=== PATIENT | female | born 1950 | race Caucasian/White ===

== ENCOUNTER 2019-08-03 08:39 | Outpatient (CLI) | payer BC, SELFPAY ==
[2019-08-03 09:10] LABS: Basophils Absolute Auto 0.1 K/mm3 (0.0-0.1); Basophils Percent Auto 1.3 % (0.2-1.2); Eosinophils Absolute Auto 0.2 K/mm3 (0-0.3); Eosinophils Percent Auto 2.8 % (0-4.4); Hemoglobin 14.3 g/dL (12.0-15.0); Immature Granulocyte Absolute 0.05 K/mm3 (0.00-0.031); Immature Granulocyte Percent A 0.8 % (0-0.5); Lymphocytes Absolute Auto 1.98 K/mm3 (0.9-3.2); Lymphocytes Percent Auto 31.2 % (18.3-44.2); Mean Corpuscular HGB Conc 32.5 g/dl (32-36); Mean Corpuscular Hemoglobin 31.8 pg (26-34); Mean Corpuscular Volume 97.8 fl (80-100); Mean Platelet Volume 9.8 fl (7.4-10.4); Monocytes Absolute Auto 0.7 K/mm3 (0.1-0.6); Monocytes Percent Auto 11.7 % (2.6-8.5); Neutrophils Absolute Auto 3.3 K/mm3 (1.3-6.7); Neutrophils Percent Auto 52.2 % (45.5-73.1); Platelet Count Result 258 k/mm3 (150-375); Red Cell Distribution Width 12.4 % (11.5-14.5); White Blood Count 6.3 K/mm3 (4.5-10.0)
[2019-08-03 09:31] LABS: Immunoglobulin A 307 mg/dL (70-400); Immunoglobulin G 902 mg/dL (700-1600); Immunoglobulin M 71 mg/dL (40-230)
[2019-08-03 09:39] LABS: Blood Urea Nitrogen 21 mg/dL (7-17); CRP 0.5 mg/dL (<1.0); Carbon Dioxide 28 mmol/L (22-30); Chloride 103 mmol/L (98-107); Estimated Glomerular Filt Rate > 60; Glucose 78 mg/dL (65-105); Sodium 137 mmol/L (137-145)
[2019-08-03 09:57] LABS: Erythrocyte Sedimentation Rate 12 mm/hr (0-20)
[2019-08-06 02:03] LABS: Immunoglobulin E 78 kU/L (<=114)
== END 2019-08-03 08:40 | disposition home or self-care (01) ==
PROVIDERS: PCP Internal Medicine; Visit Provider Internal Medicine
DX: R21 Rash and other nonspecific skin eruption (principal)
CPT/HCPCS: 36415; 80048; 82784; 82785; 85025; 85652; 86140; 87081

== ENCOUNTER 2020-12-18 11:54 | Outpatient (CLI) | payer BC, SELFPAY ==
--- NOTE | ~2020-12-18 | XR_ITS ---
XR ankle RT min 3V DATE: 12/18/2020 12:30 INDICATION: Chronic right ankle instability. No injury. TECHNIQUE: 3 weightbearing views of the right ankle COMPARISON: None FINDINGS: No fracture or dislocation of the ankle or disruption of the ankle mortise. IMPRESSION: Negative Reviewed, dictated and finalized at location B. IMPRESSION: Negative
== END 2020-12-18 11:55 | disposition home or self-care (01) ==
LOC: ANHIMG 11:59
PROVIDERS: PCP Internal Medicine; Visit Provider Podiatrist Foot & Ankle Surgery
DX: M25.371 Other instability, right ankle (principal)
CPT/HCPCS: 73610

== ENCOUNTER 2020-12-23 15:53 | Outpatient (NON) | payer BC, SELFPAY | END 2020-12-23 15:54 | disposition home or self-care (01) | PROVIDERS: PCP Internal Medicine; Visit Provider Surgery Plastic and Reconstructive Surgery | DX: S61.459A Open bite of unspecified hand, initial encounter (principal); X58.XXXA Exposure to other specified factors, initial encounter | CPT/HCPCS: 87070; 87075; 87076; 87077; 87185; 87205 ==

== ENCOUNTER → 2021-01-05 09:53 | Outpatient (CLI) | payer BC, SELFPAY ==
--- NOTE | ~2021-01-05 | XR_ITS ---
EXAMINATION: XR hand LT min 3V EXAM DATE: 01/05/2021 10:11 INDICATION: M79.642 - Pain in left hand . Pain x 2 wks; cat bite with infection; swelling near 4th me tacarpal area; no surgeries; possible fx 1st digit yrs ago? TECHNIQUE: Left hand frontal, lateral and oblique projections obtained and reviewed. There is no so or study for comparison. FINDINGS: Left metacarpal bones are unremarkable. 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 There is mild triscaphe and 1st carpometacarpal joint primary osteoarthritis. There are no bony eros ions identified. There are no acute fractures identified. No radiopaque foreign bodies identified. IMPRESSION: 1. No acute findings. 2. Left wrist arthritis as above. Reviewed, dictated and finalized at location A.
== END ==
PROVIDERS: PCP Internal Medicine; Visit Provider Surgery Plastic and Reconstructive Surgery
DX: M19.032 Primary osteoarthritis, left wrist (principal)
CPT/HCPCS: 73130

== ENCOUNTER → 2021-05-13 10:26 | Outpatient (CLI) | payer BC, SELFPAY ==
[2021-05-13 21:05] LABS: SARS-CoV-2 RNA PCR Negative
== END ==
PROVIDERS: PCP Internal Medicine; Visit Provider Internal Medicine
DX: R05.9 Cough, unspecified (principal); Z20.822 Contact with and (suspected) exposure to COVID-19
CPT/HCPCS: C9803; U0003; U0005

== ENCOUNTER 2022-07-30 06:43 | Outpatient (CLI) | payer BC, SELFPAY ==
--- NOTE | ~2022-07-30 | MR_ITS ---
EXAMINATION: MR brain/brain stem wo/w con DATE: 07/30/2022 07:54 INDICATION: Left face paresthesias. TECHNIQUE: Magnetic resonance imaging (MRI) of the brain and brainstem was performed without and with 19 mL MultiHance intravenous contrast. COMPARISON: None. FINDINGS: There are scattered areas of nonspecific increased T2-weighted signal intensity in the cere bral white matter. There is no intracranial hemorrhage, acute infarction, or abnormal intracranial ma ss lesion. The ventricles are normal in size. The trigeminal nerves are normal. There is mild mucosal thickening in left maxillary sinus. The orbits are normal. The mastoid air cells are normal. IMPRESSION: 1. Mild nonspecific cerebral white matter disease, which likely represents chronic small vessel ische zak disease. Reviewed, dictated and finalized at location A. IMPRESSION: 1. Mild nonspecific cerebral white matter disease, which likely represents hitcher monie small vessel ischemic disease.
--- NOTE | 2022-07-30 12:43 | ECHO_ITS ---
Patient Info Name: Ayanna Murillo Age: 72 years : 1950 Gender: Female Ht: 66 in Wt: 190 lbs BSA: 2.03 m2 HR: 90 bpm BP: 122 / 69 mmHg Technical Quality: Fair Exam Date: 07/30/2022 12:51 PM Exam Location: [facility] Patient Status: Preadmit Admit Date: 07/30/2022 Staff Ordering Physician: Cesar Chapman MD Hematologist: Neha Neville RDCS Attending Provider: Cesar Chapman MD Referring Physician: Adela MEDINA; Exam Type: CA echo doppler color flow Study Info Indications I44.7 - Left bundle-branch block, unspecified Complete two-dimensional, color flow and Doppler transthoracic echocardiogram is performed. Summary 1. Complete two-dimensional, color flow and Doppler transthoracic echocardiogram is performed. 2. Left ventricular chamber dimension is normal. 3. Left ventricular systolic function is normal, estimated at 60-65%. 4. Left ventricular septal wall motion is abnormal with septal motion related to bundle branch block. 5. The left ventricular diastolic function is grade I diastolic dysfunction. 6. E/e' 8 is minimally elevated. 7. Mild pulmonary hypertension, estimated pulmonary arterial systolic pressure is 45 mmHg. Left Ventricle E/e' 8 is minimally elevated. Left ventricular chamber dimension is normal. Left ventricular systolic function is normal, estimated at 60-65%. Left ventricular septal wall motion is abnormal with septal motion related to bundle branch block. The left ventricular diastolic function is grade I diastolic dysfunction. Right Ventricle Right ventricular chamber dimension is normal. Right ventricular systolic function is normal. Left Atria Left atrial chamber dimension is normal. Right Atria Right atrial chamber dimension is normal. Aortic Valve The aortic valve is trileaflet. There is no aortic valve stenosis. There is no aortic valve regurgitation. Pulmonic Valve There is no pulmonic regurgitation. Mitral Valve There is no mitral valve stenosis. There is no mitral valve regurgitation. Tricuspid Valve There is no tricuspid valve regurgitation. Mild pulmonary hypertension, estimated pulmonary arterial systolic pressure is 45 mmHg. Pericardium/Pleural There is no pericardial effusion. Inferior Vena Cava Normal inferior vena cava with >50% collapse upon inspiration consistent with normal right atrial pressure, 5 mmHg. Aorta The aortic root size at the sinus of Valsalva is normal. Left Ventricular Outflow Tract Name Value Normal LVOT 2D LVOT Diameter 2.0 cm LVOT Doppler LVOT Peak Gradient 5 mmHg LVOT Mean Gradient 3 mmHg LVOT VTI 19 cm LVOT VTI/AV VTI Ratio 0.8 LVOT Stroke Volume 59 ml LVOT CO 15.0 l/min LVOT CI 7.4 l/min/m2 Pulmonic Valve Name Value Normal
== END 2022-07-30 06:44 | disposition home or self-care (01) ==
PROVIDERS: PCP Internal Medicine; Visit Provider Internal Medicine
DX: I44.7 Left bundle-branch block, unspecified (principal); G50.0 Trigeminal neuralgia; R20.2 Paresthesia of skin; I37.1 Nonrheumatic pulmonary valve insufficiency; R93.0 Abnormal findings on diagnostic imaging of skull and head, not elsewhere classified
CPT/HCPCS: 70553; 93306; A9577

== ENCOUNTER 2023-06-21 15:24 | Outpatient (CLI) | payer BC, SELFPAY ==
--- NOTE | ~2023-06-21 | XR_ITS ---
EXAM: XR knee RT 3V DATE: 06/21/2023 16:11 HISTORY: M25.561 - Pain in right knee . COMPARISON: None available. FINDINGS: Decreased mineralization. No fracture or dislocation. No lytic or blastic lesion. Mild med ial and moderate lateral joint space narrowing. Tricompartmental osteophytosis. Quadriceps enthesopat hy. No erosion or periosteal change. Small-volume joint effusion. Soft tissues within normal limits. IMPRESSION: Tricompartmental right knee osteoarthritis, moderate in the lateral compartment. Reviewed, dictated and finalized at location K. DRESSER
== END 2023-06-21 15:25 | disposition home or self-care (01) ==
LOC: ANHIMG 15:27
PROVIDERS: PCP Internal Medicine; Visit Provider Internal Medicine
DX: M17.11 Unilateral primary osteoarthritis, right knee (principal)
CPT/HCPCS: 73562

== ENCOUNTER 2023-07-14 00:33 | Day surgery (SDC) | payer BC, SELFPAY ==
[2023-06-21 13:47] VITALS: BMI 32.3
--- NOTE | 2023-07-12 08:25 | SUR.PREOP ---
Patient called regarding upcoming procedure. Reviewed preop instructions, appointment times, and procedure prep.
--- NOTE | 2023-07-13 14:33 | PM.HPGS ---
History of Present Illness History of Present Illness Consent: Risks, benefits, and alternatives have been discussed and questions answered. Patient agrees to proceed with procedure. Chief complaint: Hemorrhage of anus and rectum Narrative: Ayanna Murillo is a 73 year old female Referred for colonoscopy due to rectal bleeding. She has seen blood in her stools on a couple occasions. Her last colonoscopy was 8 years ago and was negative except for diverticulosis. Review of Systems Review of Systems: All systems reviewed & are unremarkable except as noted in HPI and below PMFSH Past Medical History Medical History Abnormal finding of blood chemistry Abnormal finding of blood chemistry, unspecified Ankle weakness Anxiety BMI 28.0-28.9,adult BMI 29.0-29.9,adult BMI 30.0-30.9,adult BMI 31.0-31.9,adult BMI 33.0-33.9,adult BMI 34.0-34.9,adult Breast cancer screening Cellulitis Cough Dyshidrotic eczema Dysphagia Elevated LFTs Encounter for preventive health examination Encounter for routine adult health examination with abnormal findings Encounter for routine adult health examination without abnormal findings Facial paresthesia FHx: type 2 diabetes mellitus Follow up Hyperlipidemia Insomnia LBBB (left bundle branch block) Migraines Nocturia Numbness in feet On manager terminal drug therapy Vision changes Vitamin D deficiency Surgical History Surgical History History of knee replacement History of shoulder replacement History of total replacement of both hip joints Family History Family History Mother Family history of type 2 diabetes mellitus Diabetes mellitus Family history of diabetes mellitus in first degree relative Social History Social History Smoking packs per day: 0.5 Smoking cigarettes per day: 10.0 Years smoked: 30 Smoking pack-years: 15.00 Smoking status: Former smoker Tobacco type: cigarettes Second hand tobacco smoke exposure: No Alcohol intake: current Drinks per week: 5 Alcohol use details: DRINKS Substance use: never Substance use type: does not use Lack of Transportation: No Lack of Food: Never True Concerned About Future Housing: No Difficulty Paying Gas/Electric Bills: No Difficulty Paying for Meds: No Currently Unemployed: No Education: Master's Degree or Higher Difficulty w/ Childcare or Family Care: No Living arrangements: with family Occupation/Education: occupation Gender identity (if verbalized by the patient): Female Spiritual care concerns: No Meds Home Medications and Allergies Home Medications Medication Instructions Recorded Confirmed Type calcium carbonate 600 mg-vitamin 1 tablet PO DAILY 05/02/19 06/21/23 History D3 20 mcg (800 unit) chewable tablet (Caltrate 600 plus D) multivitamin 1 tablet PO DAILY 05/02/19 06/21/23 History cholecalciferol (vitamin D3) 50 50 mcg PO DAILY 07/22/22 06/21/23 History mcg (2,000 unit) capsule mupirocin calcium 2 % topical cream 1 applic topical BID PRN infection 07/22/22 06/21/23 Rx #15 grams triamcinolone acetonide 0.5 % See Rx Instructions .Route 07/22/22 06/21/23 Rx topical cream .COMPLEX PRN itching #450 grams rosuvastatin 10 mg tablet (Crestor) 10 mg PO DAILY #90 tabs 02/09/23 06/21/23 Rx rizatriptan 10 mg disintegrating See Rx Instructions PO .COMPLEX 03/30/23 06/21/23 Rx tablet #12 tabs tqiizihkuxmp-jfyjovyr-typrjej-folic 1 tablet PO DAILY 06/21/23 06/21/23 History acid 400 mcg-vit K1 20 mcg tablet (One-A-Day Women's 50 Plus) alprazolam 0.25 mg tablet 0.25 mg PO TID PRN anxiety #90 tabs 06/29/23 07/14/23 Rx Allergies Allergy/AdvReac Type Severity Reaction Status Date / Time clavulanic acid Allergy Intermediate Rash Verified 07/14/23 10:32 [
[2023-07-14 10:33] VITALS: BP 143/70; PULSE 95; RESP 18; TEMP 36.2; O2SAT 98
[2023-07-14] MEDS: LACTATED RINGERS 1,000 ML 150 ML IV CONT (10:43)
--- NOTE | 2023-07-14 11:16 | WPDANESEPPF ---
Anes - Initial Pre Proc Eval Procedure: Operation Date: 07/14/23 11:30 Proposed Procedures p Colonoscopy - Santo Cabello MD Date/Time: 07/14/23 11:16 Surgeon: Santo Cabello MD Pre Op Diagnosis: Hemorrhage of anus and rectum Patient Data Age: 73 Gender: F Height: 1.68 m Weight: 90.5 kg Last Vital Signs Temp 36.2 C L 07/14/23 10:33 Pulse 95 07/14/23 10:33 Resp 18 07/14/23 10:33 BP 143/70 H 07/14/23 10:33 Pulse Ox 98 07/14/23 10:33 O2 Del Method Room Air 07/14/23 10:33 Allergies Allergy/AdvReac Type Severity Reaction Status Date / Time clavulanic acid Allergy Intermediate Rash Verified 07/14/23 10:32 [From Augmentin] hydrocodone Allergy Intermediate HEADACHES Verified 07/14/23 10:32 clindamycin Allergy Mild Rash Verified 07/14/23 10:32 amoxicillin AdvReac Mild Rash Verified 07/14/23 10:32 Home Medications Medication Instructions Recorded Confirmed Type calcium carbonate 600 mg-vitamin 1 tablet PO DAILY 05/02/19 06/21/23 History D3 20 mcg (800 unit) chewable tablet (Caltrate 600 plus D) multivitamin 1 tablet PO DAILY 05/02/19 06/21/23 History cholecalciferol (vitamin D3) 50 50 mcg PO DAILY 07/22/22 06/21/23 History mcg (2,000 unit) capsule mupirocin calcium 2 % topical cream 1 applic topical BID PRN infection 07/22/22 06/21/23 Rx #15 grams triamcinolone acetonide 0.5 % See Rx Instructions .Route 07/22/22 06/21/23 Rx topical cream .COMPLEX PRN itching #450 grams rosuvastatin 10 mg tablet (Crestor) 10 mg PO DAILY #90 tabs 02/09/23 06/21/23 Rx rizatriptan 10 mg disintegrating See Rx Instructions PO .COMPLEX 03/30/23 06/21/23 Rx tablet #12 tabs iqrbfdlpfygb-ftagjuwa-kwvevkl-folic 1 tablet PO DAILY 06/21/23 06/21/23 History acid 400 mcg-vit K1 20 mcg tablet (One-A-Day Women's 50 Plus) alprazolam 0.25 mg tablet 0.25 mg PO TID PRN anxiety #90 tabs 06/29/23 07/14/23 Rx Patient hx anesthesia problems: none Family hx anesthesia problems: none Results Review: All pre-operative results and documents have been reviewed as part of the pre-operative evaluation. [facility] Past Medical History Medical History Abnormal finding of blood chemistry Abnormal finding of blood chemistry, unspecified Ankle weakness Anxiety BMI 28.0-28.9,adult BMI 29.0-29.9,adult BMI 30.0-30.9,adult BMI 31.0-31.9,adult BMI 33.0-33.9,adult BMI 34.0-34.9,adult Breast cancer screening Cellulitis Cough Dyshidrotic eczema Dysphagia Elevated LFTs Encounter for preventive health examination Encounter for routine adult health examination with abnormal findings Encounter for routine adult health examination without abnormal findings Facial paresthesia FHx: type 2 diabetes mellitus Follow up Hyperlipidemia Insomnia LBBB (left bundle branch block) Migraines Nocturia Numbness in feet On mcc drug therapy Vision changes Vitamin D deficiency Surgical History Surgical History History of knee replacement History of shoulder replacement History of total replacement of both hip joints Family History Family History Mother Family history of type 2 diabetes mellitus Diabetes mellitus Family history of diabetes mellitus in first degree relative Social History Social History Smoking packs per day: 0.5 Smoking cigarettes per day: 10.0 Years smoked: 30 Smoking pack-years: 15.00 Smoking status: Former smoker Tobacco type: cigarettes Second hand tobacco smoke exposure: No Alcohol intake: current Drinks per week: 5 Alcohol use details: DRINKS Substance use: never Substance use type: does not use Lack of Transportation: No Lack of Food: Never True Concerned About Future Housing: No Difficulty Paying Gas/Electric Bills: No Difficulty Pa
[2023-07-14 12:19] VITALS: BP 111/89; PULSE 89; RESP 21; O2SAT 97
[2023-07-14 12:29] VITALS: BP 121/80; PULSE 89; RESP 21; O2SAT 98
[2023-07-14 12:39] VITALS: BP 134/102; PULSE 85; RESP 22; O2SAT 100
== END 2023-07-14 12:45 | disposition home or self-care (01) ==
PROVIDERS: PCP Internal Medicine; Visit Provider Internal Medicine Gastroenterology
PROC: 0DJD8ZZ Inspection of Lower Intestinal Tract, Via Natural or Artificial Opening Endoscopic (ICD-10-PCS; CPT 45378; principal; 2023-07-14 11:30)
DX: K92.1 Melena (principal); K64.8 Other hemorrhoids; K57.30 Diverticulosis of large intestine without perforation or abscess without bleeding; Z87.891 Personal history of nicotine dependence; E78.5 Hyperlipidemia, unspecified; E55.9 Vitamin D deficiency, unspecified; Z96.643 Presence of artificial hip joint, bilateral; Z96.659 Presence of unspecified artificial knee joint; Z96.619 Presence of unspecified artificial shoulder joint
CPT/HCPCS: 45378; J2704; J7120

== ENCOUNTER 2024-05-03 07:37 | Outpatient (CLI) | payer BC, SELFPAY ==
--- NOTE | ~2024-05-03 | US_ITS ---
Limited Abdominal Sonogram: Real-time sonographic imaging of the right upper quadrant was performed. Clinical History: Abnormal serum enzyme levels Findings: The liver appears echogenic, with no evidence of solid mass lesion or bile duct dilatation . 1.3 cm hepatic cyst noted. Main portal vein demonstrates normal direction of flow. The gallbladder is well distended, and appears normal with no evidence of gallstone or wall thickening. The common bi le duct measures 3 mm. The visualized pancreas, aorta, and IVC are unremarkable. Right kidney measur es 11.8 cm in length, without hydronephrosis or renal stone. Impression: Diffuse fatty infiltration of the liver. Reviewed, dictated and finalized at location . HEAD CLEANER Impression: Diffuse fatty infiltration of the liver.
== END 2024-05-03 07:38 | disposition home or self-care (01) ==
PROVIDERS: PCP Internal Medicine; Visit Provider Internal Medicine
DX: K76.0 Fatty (change of) liver, not elsewhere classified (principal); R74.8 Abnormal levels of other serum enzymes
CPT/HCPCS: 76705

== ENCOUNTER 2025-01-28 11:12 | Outpatient (CLI) | payer SELFPAY ==
[2025-01-28 12:31] LABS: Hepatitis B Surface Antigen Negative (Negative)
[2025-01-28 12:40] LABS: HIV 1/2 Ab P24 Ag Result Negative (Negative)
--- OUTSIDE RECORDS SUMMARY | 2025-01-28 13:15 | XMS_ITS | Encounter Summary ---
Author Organization [facility] Healthcare Address [address] [place] [address] Care Team Providers Care Video Clerk Name Role Phone Cesar Chapman MD Primary Care Provider Encounter Details Date Type Department Care Team (Late st Contact Info) Description 10/16/2020 Telephone [facility] (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
--- OUTSIDE RECORDS SUMMARY | 2025-01-28 13:15 | XMS_ITS | Clinical Summary ---
Author Organization [facility] Address [address] [place] [id number] Care Team Providers Care Director Corporate Sales Name Role Phone Cesar Chapamn MD Primary Care Provider [phone] Social History Tobacco Use Types Packs/Day Years Used Date Smoking Tobacco: Never Assessed Comments Unknown Sex and Gender Information Value Date Recorded Sex Assigned at Not on file Legal Sex Female 7:18 PM CDT Gender Identity Not on file Sexual Orientation Not on file Plan of Treatment Health Maintenance Due Date Last Done Comments Colorectal Cancer Screening Colonoscopy (10 Years) 1950 Hepatitis C 1970 Zoster Vaccines (1 of 2) 2002 Pneumococcal Vaccine: 50+ Years (2 of 2 - PCV) 01/17/2021 01/18/2020 Mammogram Screening 02/16/2023 02/16/2021, 05/11/2018, 05/13/2016, Additional history exists COVID-19 Vaccine ( season) 2025 10/03/2021, 03/22/2021, 07/28/2020, Additional history exists RSV Immunization or 60+ Years (1 - 1-dose 75+ series) 2027 DTaP, Tdap and Td Vaccines (2 - Td or Tdap) 10/10/2027 10/09/2017 Dexa Scan (General) Completed 09/26/2015, 6 Meningococcal B Vaccine Aged Out No l onger eligible based on patient's age to complete this topic Meningococcal Vaccine Aged Out No jacob babar eligible based on patient's age to complete this topic RSV Immunizations Under 20 Months Aged Out No longer eligible based on patient's age to complete this topic Insurance [facility] Care Teams Director Corporate Sales Relationship Specialty Start Date End Date Cesar Chapman MD [address] [place] [id number] PCP - General INTERNAL MEDICINE 12/23/21
--- OUTSIDE RECORDS SUMMARY | 2025-01-28 13:15 | XMS_ITS | Clinical Summary ---
Author Organization [address] Address [address] [place] [id number] Care Team Providers Care Technical Coordinator Name Role Phone Cesar Chapman MD Primary Care Provider [phone] Allergies No known active allergies Medications ALPRAZolam (XANAX) 0.25 mg tablet Take by mouth 3 (three) times a day as needed 1 Active rizatriptan PEDIATRIC DENTAL ASSISTANT (MAXALT-PEDIATRIC DENTAL ASSISTANT) 10 mg disintegrating tablet 1 Active aspirin 81 mg enteric coated tablet Active calcium carbonate (CALCIUM 500 ORAL) A ctive Active Problems No known active problems Encounters Date Type Department Care Team Description 12/11/2024 Orders Only [facility] [address] [address] Julian Hinkle MD 12/03/2024 9:56 AM CDT - 12/03/2024 11:59 PM CDT Hospital Encounter [facility] [address] [address] Palpable mass of breast; Nipple pain Discharge Disposition: Discharge to home or self care 12/03/2024 9:56 AM CDT - 12/03/2024 11:59 PM CDT Hospital Encounter [facility] [address] [facility] [address] [place] [address] Palpable mass of breast Discharge Disposition: Discharge to home or self care from Last 3 Months Surgical History Surgery Date Site/Laterality Comments FLUORO GUIDED INJECTION SHOULDER LEFT 10/20/2020 Lef t Family History Medical History Relation Name Comments Diabetes Mother Family history of diabetes mellitus - (Added by TW Conv) Hypertension Mother Family history of hypertension - (Added by TW Conv) Breast cancer Mother's Sister Relation Name Status Comments Mother Mother's Sister Social History Tobacco Use Types Packs/Day Years Used Date Smoking Tobacco: Former Comments No Sex and Gender Information Value Date Recorded Sex Assigned at Not on file 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 Gender Identity Female 08/19/2020 9:38 AM CDT Sexual Orientation Straight 08/19/2020 9: 38 AM CDT Obstetrics History Para Term AB IAB SAB Ectopic Multiple Livin g Live Births 1 1 1 Date Outcome GA Total Labor Labor/2nd/3rd Weight Sex Type Anes PTL Marilyn A1 A5 Name Clin Term Last Filed Vital Signs Vital Sign Reading Time Taken Comments Blood Pressure 127/83 10/20/2020 8:56 AM CDT Pulse 72 10/20/2020 8:56 AM CDT Temperature - - Respiratory Rate 16 10/20/2020 8:56 AM CDT Oxygen Saturation 100% 02/03/2016 8:25 AM CDT Inhaled Oxygen Concentration - - Weight 86.2 kg (190 lb) 12/03/2024 10:11 AM CDT Height 165.1 cm (5' 5) 12/03/2024 10:11 AM CDT Body Mass Index 31.62 12/03/2024 10:11 AM CDT Plan of Treatment Health Maintenance Due Date Last Done Comments Colon Cancer Screening-Colonoscopy 1950 Depression Screening 1950 Fall Risk Assessment 1950 Hepatitis C Screening 1950 Hepatitis B Screening 1970 Pneumococcal vaccine 65+ (1 of 1 - PCV) 2002 Zoster Vaccine (1 of 2) 2002 Well Visit 65+ 2017 Osteoporosis Screening-Bone Density Scan 09/25/2017 09/26/2015 Influenza Vaccine (#1) 2025 9, 02/28/2018, 02/03/2016, Additional history exists Breast Cancer Screening-Mammogram 12/03/2025 12/03/2024, 02/16/2021, 05/11/2018, Additional history exists DTaP/Tdap/Td Vaccine (2 - Td or Tdap) 10/10/2027 10/09/2017 Procedures Procedure Name Priority Date/Time Associated Diagnosis Comments US BREAST LEFT LIMITED Schedule Routine, Read Routine (OP Routine) 12/03/2024 11:24 AM CDT Nipple pain DIAGNOSTIC MAMMOGRAM BILATERAL W JUSTIN Schedule Routine, Read Routine (OP Routine) 12/03/2024 10:29 AM CDT Palpable mass of breast DEXA AXIAL SKELETON BONE DENSITY 1 OR MORE SITES Routine 09/26/2015 1:39 PM CDT from Last 3 Months or Most Recently Relevant to Health Maintenance Results * US Breast Left Limited (12/03/2024 11:24 AM CDT) Anatomical Region Laterality Modality Breast Left Ultrasound 12/03/2024 11:2 8 AM CDT Addenda Addendum by Diana Merino MD on 12/03/2024 11:35 AM CDT The BI-RADS code was entered erroneously. It should be: BI-RADS 1-negative Electronically signed by: Diana Merino M.D. Impressions 12/03/2024 11:28 AM CDT No imaging findings to suggest malignancy are seen. The patient may return to screening mammography as per ACR guidelines. OVERALL FINAL ASSESSMENT: BI-RADS 3 - Probably benign findings. Short-term follow-up is recommended. Electronically signed by: Diana Merino M.D. Narrative 12/03/2024 11:28 AM CDT EXAMINATION: BILATERAL DIGITAL DIAGNOSTIC MAMMOGRAM AND DIGITAL BREAST TOMOSYNTHESIS; LEFT BREAST SONOGRAM HISTORY: Intermittent left nipple pain. COMPARISON: 2020, 2017, and 2015 TECHNIQUE: Full field digital mammographic views of the bilateral breast(s) were performed, including computer aided detection (CAD) and digital breast tomosynthesis (DBT). Directed ultrasound evaluation of the left breast(s) was performed. BREAST PARENCHYMAL COMPOSITION: There are scattered areas of fibroglandular density. MAMMOGRAM FINDINGS: There are no suspicious masses. No suspicious calcifications are seen. There is no unexplained architectural distortion. There is no skin thickening seen. There are no mammographically abnormal lymph nodes seen in the axillae or elsewhere. ULTRASOUND FINDINGS: Sonography through the left retroareolar region demonstrates no significant abnormality. Procedure Note Diana Merino MD - 12/03/2024 EXAMINATION: BILATERAL DIGITAL DIAGNOSTIC MAMMOGRAM AND DIGITAL BREAST TOMOSYNTHESIS; LEFT BREAST SONOGRAM HISTORY: Intermittent left nipple pain. COMPARISON: 2020, 2017, and 2015 TECHNIQUE: Full field digital mammographic views of the bilateral breast(s) were performed, including computer aided detection (CAD) and digital breast tomosynthesis (DBT). Directed ultrasound evaluation of the left breast(s) was performed. BREAST PARENCHYMAL COMPOSITION: There are scattered areas of fibroglandular density. MAMMOGRAM FINDINGS: There are no suspicious masses. No suspicious calcifications are seen. There is no unexplained architectural distortion. There is no skin thickening seen. There are no mammographically abnormal lymph nodes seen in the axillae or elsewhere. ULTRASOUND FINDINGS: Sonography through the left retroareolar region demonstrates no significant abnormality. IMPRESSION: No imaging findings to suggest malignancy are seen. The patient may return to screening mammography as per ACR guidelines. OVERALL FINAL ASSESSMENT: BI-RADS 3 - Probably benign findings. Short-term follow-up is recommended. Electronically signed by: Diana Merino M.D. Julian Hinkle MD IMG MAMMO PROCEDURES Edited Result - Final * Diagnostic Mammogram Bilateral W Justin (12/03/2024 10:29 AM CDT) Anatomical Region Laterality Modality Breast Bilateral Mammography 12/03/2024 11:2 8 AM CDT Addenda Addendum by Diana Merino MD on 12/03/2024 11:35 AM CDT The BI-RADS code was entered erroneously. It should be: BI-RADS 1-negative Electronically signed by: Diana Merino M.D. Impressions 12/03/2024 11:28 AM CDT No imaging findings to suggest malignancy are seen. The patient may return to screening mammography as per ACR guidelines. OVERALL FINAL ASSESSMENT: BI-RADS 3 - Probably benign findings. Short-term follow-up is recommended. Electronically signed by: Diana Merino M.D. Narrative 12/03/2024 11:28 AM CDT EXAMINATION: BILATERAL DIGITAL DIAGNOSTIC MAMMOGRAM AND DIGITAL BREAST TOMOSYNTHESIS; LEFT BREAST SONOGRAM HISTORY: Intermittent left nipple pain. COMPARISON: 2020, 2017, and 2015 TECHNIQUE: Full field digital mammographic views of the bilateral breast(s) were performed, including computer aided detection (CAD) and digital breast tomosynthesis (DBT). Directed ultrasound evaluation of the left breast(s) was performed. BREAST PARENCHYMAL COMPOSITION: There are scattered areas of fibroglandular density. MAMMOGRAM FINDINGS: There are no suspicious masses. No suspicious calcifications are seen. There is no unexplained architectural distortion. There is no skin thickening seen. There are no mammographically abnormal lymph nodes seen in the axillae or elsewhere. ULTRASOUND FINDINGS: Sonography through the left retroareolar region demonstrates no significant abnormality. us Julian Hinkle MD IMG MAMMO PROCEDURES Edited Result - Final * Dexa Axial Skeleton Bone Density 1 or 2 Site (09/26/2015 1:39 PM CDT) Anatomical Region Laterality Modality Body N/A Radiographic Ivy ging 09/26/2015 1:39 PM CDT Impressions 09/26/2015 2:22 PM CDT Low bone mass Bone mineral density: Normal (T-score above or = -1.0) Low bone mass (T-score between -1.0 and -2.5) replaces the previously used term osteopenia Osteoporosis (T-score = or below -2.5) Medical evaluation for secondary causes of low bone mineral density may be appropriate. FRAX is a World Health Organization validated fracture risk assessment tool that calculates a person's 10 year probability of a major osteoporosis related fracture and hip fracture. According to the National Osteoporosis Foundation guidelines, postmenopausal women and men age 50 or older with low bone mass and a 10 year probability of a major osteoporosis related fracture = or greater than 20% or a 10 year probability of a hip fracture = or greater than 3% should be considered for treatment. For further information, including treatment recommendations, please refer to the 2013 ISCD Official Positions (http://www.iscd.org) and the NOF's Clinician's Guide to Prevention and Treatment of Osteoporosis (http://www.nof.org/professionals/clinical-guidelines) THIS IS AN ELECTRONICALLY VERIFIED REPORT 09/26/2015 2:18 PM: Ritesh Mcknight M.D. Ritesh Mcknight M.D. [place]:lacy 02:18 PM 02:18 PM VIVEK [EOD] Narrative 09/26/2015 2:22 PM CDT EXAMINATION: DXA Bone Density HISTORY: 65 year old postmenopausal female with given history of postmenopausal. Current Height: 67 inches Maximum Height: 65 inches Weight: 182 pounds RISK FACTORS: None COMPARISON(S): None JEWELER APPRENTICE/MODEL: Savored (S/N [id number]) FINDINGS: AP lumbar spine L1-L4 Total BMD is 1.17 g/vz5P-qahuz is 1.1 Left Hip Total BMD is 0.79 g/nr4K-smcek is -1.2 Neck BMD is 0.81 g/yc1I-dkubl is -0.4 Fracture risk assessment (FRAX): 10 year risk for a major osteoporotic fracture is 6.7 % 10 year risk for a hip fracture is 0.2 % The FRAX tool has not been validated in patients currently or previously treated with pharmacotherapy for osteoporosis. In such patients, clinical judgement must be exercised in interpreting FRAX scores as the fracture risk may be overestimated. Procedure Note Provider, MD Kim - 09/30/2020 EXAMINATION: DXA Bone Density HISTORY: 65 year old postmenopausal female with given history of postmenopausal. Current Height: 67 inches Maximum Height: 65 inches Weight: 182 pounds RISK FACTORS: None COMPARISON(S): None JEWELER APPRENTICE/MODEL: Tradyo SL (S/N [id number]) FINDINGS: AP lumbar spine L1-L4 Total BMD is 1.17 g/oe2C-ebljm is 1.1 Left Hip Total BMD is 0.79 g/ap8Z-jzoum is -1.2 Neck BMD is 0.81 g/xt4J-cmeru is -0.4 Fracture risk assessment (FRAX): 10 year risk for a major osteoporotic fracture is 6.7 % 10 year risk for a hip fracture is 0.2 % The FRAX tool has not been validated in patients currently or previously treated with pharmacotherapy for osteoporosis. In such patients, clinical judgement must be exercised in interpreting FRAX scores as the fracturerisk may be overestimated. IMPRESSION: Low bone mass Bone mineral density: Normal (T-score above or = -1.0) Low bone mass (T-score between -1.0 and -2.5) replaces the previously used term osteopenia Osteoporosis (T-score = or below -2.5) Medical evaluation for secondary causes of low bone mineral density may be appropriate. FRAX is a World Health Organization validated fracture risk assessmenttool that calculates a person's 10 year probability of a major osteoporosisrelated fracture and hip fracture. According to the National OsteoporosisFoundation guidelines, postmenopausal women and men age 50 or older with low bonemass and a 10 year probability of a major osteoporosis related fracture = or greater than 20% or a 10 year probability of a hip fracture = or greaterthan 3% should be considered for treatment. For further information, including treatment recommendations, please referto the 2013 ISCD Official Positions (http://www.iscd.org) and the NOF's Clinician's Guide to Prevention and Treatment of Osteoporosis (http://www.nof.org/professionals/clinical-guidelines) THIS IS AN ELECTRONICALLY VERIFIED REPORT 09/26/2015 2:18 PM: Ritesh Mcknight M.D. Ritesh Mcknight M.D. [place]:lacy 02:18 PM 02:18 PM VIVEK [EOD] us Julian Hinkle MD IMG DXA PROCEDURES Fi nal Result from Last 3 Months or Most Recently Relevant to Health Maintenance Insurance [employer] [facility] [employer] [place] [employer] [place] * Guarantor: [facility] Account Type Relation to Patient Date of Phone Billing Address Research Care Teams Technical Coordinator Relationship Specialty Start Date End Date Cesar Chapman MD [address] [facility] [address] [place] [address] PCP - General 09/20/16
--- OUTSIDE RECORDS SUMMARY | 2025-01-28 13:15 | XMS_ITS | Clinical Summary ---
Author Organization [employer] [facility] Address [address] [facility] Attn: Epic Prelude ADT YAYO MATTA [id number] Care Team Providers Care Fiber Optic Splicer Name Role Phone Unavailable Primary Care Provider Unavailabl e Immunizations Immunization Administration Dates Next Due INFLUENZA VACCINE HIGH DOSE QUADRIVALENT 65 YR UP PF IM 02/14/2023,02/27/2022 Social History Tobacco Use Types Packs/Day Years Used Date Smoking Tobacco: Never Assessed Comments Unknown Sex and Gender Information Value Date Recorded Sex Assigned at Not on file Legal Sex Female 3:26 PM CDT Gender Identity Not on file Sexual Orientation Not on file Plan of Treatment Health Maintenance Due Date Last Done Comments DTAP/TDAP/TD VACCINES (1 - Tdap) 1971 BREAST CANCER SCREENING 1992 COLORECTAL SCREENING 1997 Colorectal Cancer Screening 1997 FIT-DNA Q 3 years 1997 FIT/FOBT Q 1 year 1997 Flex Sig/CT Colonography Q 5 years 1997 PNEUMOCOCCAL VACCINE 50+ YEA RS (1 of 1 - PCV) 2002 ZOSTER VACCINE (1 of 2) 2002 OSTEOPOROSIS SCREENING 2017 INFLUENZA VACCINE (#1) 2024 02/14/2023, 2021 RSV VACCINE (60+ or ) (1 - 1-dose 75+ series) 2027 Insurance [employer] Member Subscriber Plan / Payer (Ef fective for All Dates) Name:RENITA MURILLO Relation to Subscriber:Self Name:Renita Murillo Payer ID:Not on file Type:RX Commercial Address: [address]
== END 2025-01-28 11:13 | disposition home or self-care (01) ==
LOC: ANHLAB 11:14
PROVIDERS: PCP Internal Medicine; Visit Provider Internal Medicine
DX: T14.8XXA Other injury of unspecified body region, initial encounter (principal)
CPT/HCPCS: 36415; 86703; 86803; 87340; G0432

== ENCOUNTER 2025-05-01 08:27 | Outpatient (CLI) | payer BC, SELFPAY ==
--- NOTE | ~2025-05-01 | DEXA_ITS ---
Bone Density Report Name: RENITA TENA Age: 75 Sex: Female Ethnicity: White Date of : 1950 Indication: postmenopausal; screening for osteoporosis; parental hip fracture; height loss; history of glucocorticoids; prior fracture; Referring Provider: BARBARA DLILARD Study: Bone densitometry was performed. Exam Date: May 01, 2025 Accession number: [id number] Bone Density: Region BMD T-score Z-score Classification AP Spine(L1-L4) 1.270 2.0 4.3 Normal World Health Organization criteria for BMD impression classify patients as: Normal (T-score at or above -1.0), Osteopenia (T-score between -1.0 and -2.5), or Osteoporosis (T-score at or below -2.5). Clinical Information Provided by Patient: Have had a previous hip or vertebral fracture Has had a low trauma fracture Parent has had a hip fracture Has taken Glucocorticoids Has used the following medications: HRT (i.e. estrogen/hormone therapy), Vitamin D, Calcium Patient maximum height was 67 Menopause Age: 52 No regular weight bearing exercise Drinks caffeinated beverages Onset of menses at age 15 Number of children 1 Impression: The patient has normal bone mass. The patient has risk factors, including: parental hip fracture, previous fracture, history of glucocorticoid therapy. Discussion: INCREASED RISK OF FRACTURE DUE TO HISTORY OF FRACTURE. The patient's previous fracture puts the patient at high risk of a future fracture. In untreated patients, the risk of osteoporotic fracture increases approximately two-fold for each 1.0 SD decrease in T-score. Low bone density is not the only risk factor for fracture; also consider factors such as patient's age, frailty or poor health, risk of falling, risk of injury, previous osteoporotic fracture, family history of osteoporosis, cigarette smoking, low body weight, etc. Not everyone with a low trauma fracture has osteoporosis; osteomalacia and other metabolic bone disorders should also be considered. Patients who have osteoporosis should be evaluated for specific diseases and conditions (secondary causes) that may cause or contribute to bone loss and fracture risk. National Osteoporosis Foundation (NOF) recommends pharmacologic intervention for patients with a prior hip or vertebral fracture regardless of BMD T-score. The patient should follow a healthful lifestyle (good nutrition with adequate calcium and vitamin D, and appropriate weight-bearing exercise). Follow-Up: Consider a repeat BMD and Vertebral Fracture Assessment (VFA) exam in 2 years or sooner if medically necessary, to reassess this patient's status. Reported by: PRITI on 05/01/2025 9:08:00 AM. Reviewed, dictated and finalized at location A.
== END 2025-05-01 08:28 | disposition home or self-care (01) ==
LOC: ANHFOHIMG 08:30
PROVIDERS: PCP Internal Medicine; Visit Provider Internal Medicine
DX: Z78.0 Asymptomatic menopausal state (principal)
CPT/HCPCS: 77080